=== PATIENT | female | born 1990 | race African-American/Black ===

== ENCOUNTER 2019-09-09 10:50 | Outpatient (CLI) | payer BC, OTHER ==
[2019-09-10 14:02] LABS: SARS-CoV-2 MS2 Positive; SARS-CoV-2 N Gene Negative; SARS-CoV-2 S Gene Negative; SARS-CoV-2 orf1ab Negative
== END 2019-09-09 10:51 | disposition home or self-care (01) ==
LOC: LABSCS 10:50
PROVIDERS: ATTEND Student in an Organized Health Care Education/Training Program
DX: Z01.812 Encounter for preprocedural laboratory examination (principal); Z11.59 Encounter for screening for other viral diseases
CPT/HCPCS: 87635; U0003

== ENCOUNTER 2019-09-12 05:30 | Inpatient (IN) | payer BC, OTHER ==
[2019-09-14] MEDS ORDERED: NS / Oxytocin 40 units/1000ml 1,000 ML ONE ×2 (07:20→09:18)
[2019-09-14] MEDS ORDERED: Lidocaine 1% (PF) 30 ML VIAL ONE (07:20)
[2019-09-14] MEDS ORDERED: Ibuprofen 800 MG TAB PO PRN (08:09)
[2019-09-14] MEDS ORDERED: Ondansetron PF 4 MG/2 ML Vial IVP PRN ×3 (08:09→10:42)
[2019-09-14] MEDS ORDERED: Lidocaine 1% (PF) 30 ML VIAL SC PRN ×2 (08:09)
[2019-09-14] MEDS ORDERED: Butorphanol Tartrate 1 MG/ML VIAL SLOW IVP PRN (08:09)
[2019-09-14] MEDS ORDERED: NS w/ Oxytocin 10 units 500 ML IV SCH (08:09)
[2019-09-14] MEDS ORDERED: Promethazine HCl 25 MG/ML VIAL IM PRN ×2 (08:09)
[2019-09-14] MEDS ORDERED: Lactated Ringer's 1,000 ML IV SCH (08:09)
[2019-09-14] MEDS ORDERED: Carboprost 250 MCG/ML AMP IM PRN (08:09)
[2019-09-14] MEDS ORDERED: Methylergonovine 0.2 MG/ML VIAL IM PRN (08:09)
[2019-09-14] MEDS ORDERED: hydrALAZINE 20 MG/ML VIAL SLOW IVP PRN ×3 (08:09→10:42)
[2019-09-14] MEDS ORDERED: Misoprostol 200 MCG TAB PR PRN (08:09)
[2019-09-14] MEDS ORDERED: NS / Oxytocin 40 units/1000ml 1,000 ML IV PRN ×2 (08:09)
[2019-09-14] MEDS ORDERED: HYDROcodone/Acetaminophen 5/325 mg Tablet PO PRN ×2 (08:09→10:42)
[2019-09-14] MEDS ORDERED: Acetaminophen 500 MG TAB PO PRN (08:09)
--- NOTE | 2019-09-14 08:14 | PDOC.LDHP ---
Labor and Delivery H&P Chief complaint: contractions HPI: 28yo at 40w by LMP here for IOL with painful contractions. Current gestational age (weeks): 40 Due date: 09/09/19 Dating criteria: last menstrual period Grav: 3 Para: 2 Current complications: none Abnormal US findings: No Past Medical History: denies Current medications: pre- vitamins Previous surgical history: none Social history: none - Physical Exam Vital signs reviewed and normal: yes General: breathing through contractions Heart: RRR Lungs: CTAB Abdomen: gravid Extremeties: no edema FHT: category 1 - Vaginal Exam cm dilated: 10 Effacement: 100% Station: 3+ - OB Labs Blood type: B RH: positive Antibody Screen: negative HIV: negative RPR: negative HEPSAg: positive 1 hour GCT: negative GBS: negative Urine drug screen: negative Rubella: immune - Assessment L&D Assessment: term patient in labor - Plan Plan: admit to L&D, labor augmentation if indicated, informed consent obtained
[2019-09-14 08:23] LABS: Hemoglobin 12.1 g/dL (12.0-16.0); Mean Corpuscular HGB CONC 33.7 g/dL (32.0-36.0); Mean Corpuscular Volume 91.8 fL (78.0-98.0); Mean Platelet Volume 8.6 fL (7.4-10.4); Platelet Count 176 thou/uL (130-400); RBC Distribution Width 12.1 % (11.5-14.5); Red Blood Cell (RBC) Count 3.92 mill/uL (4.20-5.40); White Blood Cell (WBC) Count 8.5 thou/uL (4.8-10.8)
--- NOTE | 2019-09-14 08:23 | PDOC.OPDEL ---
OB Operative/Delivery Note Delivery Dr/Surgeon: Mark/Jag Assist: n/a Pre-Delivery Diagnosis: active labor Procedure/Post Delivery Dx: spontaneous vaginal delivery Weeks gestation: 40 Anesthesia: none - Findings A Sex: female - 1 min: 8 - 5 min: 9 - Additional Findings/Plan Placenta delivered: spontaneous Repaired Obstetrical Laceration: none Estimated blood loss: 50cc Post delivery plan: routine recovery
[2019-09-14 08:58] VITALS: BMI 29.7
[2019-09-14 09:04] LABS: Syphilis Antibody Nonreactive (Nonreactive); Syphilis Antibody Index 0.12 S/CO (<1.00 Non-Reactive)
[2019-09-14] MEDS ORDERED: Benzocaine-Menthol 82.5 ML CAN TOP PRN (10:42)
[2019-09-14] MEDS ORDERED: Milk Of Magnesia 30 ML UDCUP PO PRN (10:42)
[2019-09-14] MEDS ORDERED: NS / Oxytocin 40 units/1000ml 1,000 ML IV SCH (10:42)
[2019-09-14] MEDS ORDERED: Lanolin Ointment 7 GM TUBE TOP PRN (10:42)
[2019-09-14] MEDS ORDERED: Preparation H Ointment 28 GM TUBE PR PRN (10:42)
[2019-09-14] MEDS ORDERED: diphenhydrAMINE 25 MG CAP PO PRN (10:42)
[2019-09-14] MEDS ORDERED: Bisacodyl 10 MG SUPP PR PRN (10:42)
[2019-09-14 10:51] LABS: HBSAg Index 4972.82 S/CO (0-0.99)
[2019-09-14 10:52] LABS: Hep B Surf Ag Reflx Confirmation S/CO (NonReactive)
[2019-09-14] MEDS: Ibuprofen 800 MG TAB PO SCH ×2 (14:27→20:59)
[2019-09-14] MEDS: Ferrous Sulfate 325 MG TAB PO SCH (18:14)
[2019-09-14] MEDS: Docusate Calcium (SURFAK) 240 MG CAP PO SCH (20:59)
[2019-09-15] MEDS: Ibuprofen 800 MG TAB PO SCH ×2 (05:07→14:54)
[2019-09-15] MEDS ORDERED: Prenatal Vitamin 1 TAB PO SCH (09:00)
[2019-09-15 09:30] VITALS: BP 125/74; TEMP 98.3
[2019-09-15] MEDS: Ferrous Sulfate 325 MG TAB PO SCH ×2 (09:39→18:19)
[2019-09-15] MEDS: Docusate Calcium (SURFAK) 240 MG CAP PO SCH (10:11)
[2019-09-15] MEDS ORDERED: Adacel (T-DAP) 0.5 ML SYRINGE IM ONE (10:42)
== END 2019-09-15 18:40 | disposition home or self-care (01) | DRG 807 ==
LOC: L&D 09-14 06:35 → 3SW 09-14 14:23
PROVIDERS: ADMIT Student in an Organized Health Care Education/Training Program; ATTEND Student in an Organized Health Care Education/Training Program
PROC: 10E0XZZ Delivery of Products of Conception, External Approach (ICD-10-PCS; principal; 2019-09-14)
DX: O80 Encounter for full-term uncomplicated delivery (principal); Z37.0 Single live birth; Z3A.40 40 weeks gestation of pregnancy
CPT/HCPCS: 36415; 85027; 86780; 86850; 86900; 86901; 87340; J2001